=== PATIENT | male | born 1980 | race Caucasian/White ===

== ENCOUNTER 2023-10-10 22:08 | Emergency (ER) | payer MEDICAID ==
[~2023-10-10] VITALS: Ht 165.1 cm; Wt 103.9 kg
[2023-10-10 22:41] VITALS: TEMP 98; O2SAT 99
[2023-10-11] MEDS: SODIUM CHLORIDE 0.9% 1,000 ML IV ONE (03:30)
[2023-10-11] MEDS: KETOROLAC 15MG/ML VIAL IV ONE (04:25)
[2023-10-11 04:35] LABS: CHLORIDE 106 mEq/L (98-107); POTASSIUM 3.5 mEq/L (3.5-5.1); SODIUM 138 mEq/L (136-145)
[2023-10-11 04:36] LABS: CARBON DIOXIDE 27 mEq/L (21-32)
[2023-10-11 04:37] LABS: CALCIUM 9.3 mg/dL (8.7-10.4)
[2023-10-11 04:41] LABS: GLUCOSE 88 mg/dL (70-105); UREA NITROGEN BLOOD 15 mg/dL (9-23)
[2023-10-11] MEDS ORDERED: IBUP-2029 MT (06:06)
[2023-10-11] MEDS ORDERED: IOHEXOL-300 100 ML BOTTLE ONE (06:13)
[2023-10-11 06:30] VITALS: BP 128/76; PULSE 80; RESP 18
== END 2023-10-11 07:21 | disposition home or self-care (01) ==
LOC: ER 22:08
DX: S30.1XXA Contusion of abdominal wall, initial encounter (principal); R10.12 Left upper quadrant pain; V49.49XA Driver injured in collision with other motor vehicles in traffic accident, initial encounter; Y93.89 Activity, other specified; Y92.89 Other specified places as the place of occurrence of the external cause; Y99.8 Other external cause status
CPT/HCPCS: 99285; 70450; 96374; 96361; 80048; 86850; 86900; 86901; 36415; 73560; 71260; 72125; 74177; Q9967; J1885; J7030